=== PATIENT | female | born 1995 | race Caucasian/White ===

== ENCOUNTER 2021-10-20 23:49 | Emergency (ER) | payer OTHER ==
[~2021-10-20] VITALS: Ht 167.6 cm; Wt 83.5 kg
[2021-10-21] MEDS ORDERED: PRENATA CHEWAB1 EACH PO (00:22)
== END 2021-10-21 01:55 | disposition home or self-care (01) ==
LOC: ED 23:49
DX: O26.891 Other specified pregnancy related conditions, first trimester (principal); R10.31 Right lower quadrant pain; R10.32 Left lower quadrant pain; O99.511 Diseases of the respiratory system complicating pregnancy, first trimester; J45.909 Unspecified asthma, uncomplicated; Z88.0 Allergy status to penicillin; Z88.5 Allergy status to narcotic agent; Z79.899 Other long term (current) drug therapy; Z3A.01 Less than 8 weeks gestation of pregnancy
CPT/HCPCS: 36415; 76801; 76817; 80053; 81001; 84702; 85025; 86900; 86901; 99284-25

== ENCOUNTER 2021-12-20 12:44 | Emergency (ER) | payer OTHER ==
[~2021-12-20] VITALS: Ht 167.6 cm; Wt 83.5 kg
[~2021-12-20 12:44] MED LIST: PRENATA CHEWAB1 EACH PO
== END 2021-12-20 13:54 | disposition home or self-care (01) ==
LOC: ED 12:44
DX: O99.891 Other specified diseases and conditions complicating pregnancy (principal); R03.1 Nonspecific low blood-pressure reading; U07.1 COVID-19; Z88.0 Allergy status to penicillin; Z88.5 Allergy status to narcotic agent; Z3A.14 14 weeks gestation of pregnancy
CPT/HCPCS: 99284

== ENCOUNTER 2021-12-25 21:28 | Emergency (ER) | payer OTHER ==
[~2021-12-25] VITALS: Ht 167.6 cm; Wt 83.9 kg
--- OUTSIDE RECORDS SUMMARY | 2021-12-25 21:34 | XMS ---
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 Care Guidelines exist for the following facilities: [facility] [place] ( [place]12/2020 ) [place] VISIT COUNT (12 MO.) 3 [facility] TOTAL 3 NOTE: Visits indicate total known visits. ED/UCC VISIT TRACKING (12 MO.) 12/25/2021 21:28 [facility] [place] TYPE: Emergency COMPLAINT: - SKIN PROBLEM 12/20/2021 12:45 [facility] [place] TYPE: Emergency COMPLAINT: - LOW BLOOD PRESSURE DIAGNOSES: - COVID-19 - Allergy status to narcotic agent - Other specified diseases and conditions complicating - Nonspecific low blood-pressure reading - 14 weeks gestation of - Allergy status to penicillin 10/20/2021 23:51 [facility] TYPE: Emergency COMPLAINT: - ABD PAIN DIAGNOSES: - Right lower quadrant pain - Allergy status to narcotic agent - Unspecified asthma, uncomplicated - Less than 8 weeks gestation of - Allergy status to penicillin - Diseases of the respiratory system complicating , first trimester - Other specified diseases and conditions complicating - Other specified related conditions, first trimester - 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
[2021-12-25] MEDS ORDERED: PREDNISONE20 MG PO (21:51)
== END 2021-12-25 22:02 | disposition home or self-care (01) ==
LOC: ED 21:28
DX: L29.9 Pruritus, unspecified (principal); J45.909 Unspecified asthma, uncomplicated; Z88.0 Allergy status to penicillin; Z88.5 Allergy status to narcotic agent
CPT/HCPCS: 99283; J7512

== ENCOUNTER 2022-06-17 19:03 | Emergency (ER) | payer OTHER ==
[~2022-06-17] VITALS: Ht 167.6 cm; Wt 97.1 kg
[~2022-06-17 19:03] MED LIST changes: +PREDNISONE20 MG PO
[2022-06-17] MEDS ORDERED: TRANEXAMIC ACI650 MG PO (20:28)
[2022-06-17] MEDS ORDERED: ACETAMINOPHEN325 M1 PO (20:28)
[2022-06-17] MEDS ORDERED: IBUPROFEN600 MG PO (20:28)
[2022-06-17] MEDS ORDERED: DOCUSATE SODIU100 MG PO (20:28)
== END 2022-06-17 21:55 | disposition home or self-care (01) ==
LOC: ED 19:03
DX: O72.2 Delayed and secondary postpartum hemorrhage (principal); O99.53 Diseases of the respiratory system complicating the puerperium; J45.909 Unspecified asthma, uncomplicated; Z88.0 Allergy status to penicillin; Z88.5 Allergy status to narcotic agent; Z79.899 Other long term (current) drug therapy
CPT/HCPCS: 36415; 76830; 76856; 80053; 85025; 99284-25

== ENCOUNTER 2022-06-19 10:46 | Emergency (ER) | payer OTHER ==
[~2022-06-19] VITALS: Ht 167.6 cm; Wt 97.1 kg
[~2022-06-19 10:46] MED LIST changes: +ACETAMINOPHEN325 M1 PO; +DOCUSATE SODIU100 MG PO; +IBUPROFEN600 MG PO; +TRANEXAMIC ACI650 MG PO
--- OUTSIDE RECORDS SUMMARY | 2022-06-19 10:54 | XMS ---
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 Care Guidelines exist for the following facilities: [facility] [place] ( 08[place]12/2020 ) [place] VISIT COUNT (12 MO.) 5 [facility] TOTAL 5 NOTE: Visits indicate total known visits. 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 - Diseases of the respiratory system complicating the puerperium - Allergy status to narcotic agent - Delayed and secondary hemorrhage - Allergy status to penicillin - Unspecified asthma, uncomplicated 12/25/2021 21:28 [facility] TYPE: Emergency COMPLAINT: - SKIN PROBLEM DIAGNOSES: - Allergy status to narcotic agent - Rash and other nonspecific skin eruption - Pruritus, unspecified - Allergy status to penicillin - Unspecified asthma, uncomplicated 12/20/2021 12:45 [facility] [place] TYPE: Emergency COMPLAINT: - LOW BLOOD PRESSURE DIAGNOSES: - 14 weeks gestation of - Other specified diseases and conditions complicating - COVID-19 - Allergy status to penicillin - Nonspecific low blood-pressure reading - Allergy status to narcotic agent 10/20/2021 23:51 [facility] [place] TYPE: Emergency COMPLAINT: - ABD PAIN DIAGNOSES: - Allergy status to penicillin - Unspecified asthma, uncomplicated - Left lower quadrant pain - Right lower quadrant pain - Other specified related conditions, first trimester - Diseases of the respiratory system complicating , first trimester - Less than 8 weeks gestation of - Allergy status to narcotic agent - Other senior care (current) drug therapy - Other specified diseases and conditions complicating INPATIENT VISIT TRACKING (12 MO.) 06/12/2022 20:39 [facility] [place] TYPE: [facility] COMPLAINT: - Inpt Induction, Von Willebrand Dis. Type I, Hx 1 wk Delayed PPH w/ Transfusion, 38-6 wks DIAGNOSES: - Inpt Induction, Von Willebrand Dis. Type I, Hx 1 wk Delayed PPH w/ Transfusion, 38-6 wks [id number]
[2022-06-19] MEDS ORDERED: CEPHALEXIN500 M1 PO (16:39)
== END 2022-06-19 17:03 | disposition home or self-care (01) ==
LOC: ED 10:46
DX: R51.9 Headache, unspecified (principal); N39.0 Urinary tract infection, site not specified; J45.909 Unspecified asthma, uncomplicated; Z88.0 Allergy status to penicillin; Z88.5 Allergy status to narcotic agent; Z79.899 Other long term (current) drug therapy
CPT/HCPCS: 36415; 80053; 81001; 83605; 84157; 85025; 87088; 87502; 89051; 96374; 99284-25; A9270; C9803; J1885; J7030; U0003

== ENCOUNTER 2023-03-07 16:26 | Emergency (ER) | payer OTHER ==
[~2023-03-07] VITALS: Ht 167.6 cm; Wt 101.9 kg
--- OUTSIDE RECORDS SUMMARY | ~2023-03-07 | XMS | Continuity of Care Document ---
Demographics + + + | Address | [address] | | | [place] [address] | + + + | Preferred Language | Unknown | + + + | Marital Status | | + + + | Druze Affiliation | Unknown | + + + | Race | White | + + + | Ethnic Group | Not or | + + + Author + + + | Author | [facility] | + + + | Organization | [facility] | + + + | Address | [address] | | | [place] [address] | + + + | Phone | | + + + Care Team Providers + + + + | Care Panel Machine Tender Name | Role | Phone | + + + + Unavailable | Unavailable | + + + + Allergies No information. Encounters No information. Functional Status No information. Immunizations No information. Medications No information. Problems + + + + | date | description | facility | + + + + | 2023-01-28 07:00 | RIGHT UPPER QUADRANT PAIN | [facility] | + + + + | 2023-01-28 07:00 | UNSPECIFIED ABDOMINAL PAIN | [facility] | | | | | + + + + Procedures No information. Results/Labs No information. Social History +--------+ + + | date | description | facility | +--------+ + + Vital Signs No information."
[~2023-03-07 16:26] MED LIST changes: +CEPHALEXIN500 M1 PO
[2023-03-07 17:29] LABS: INFLUENZA B NAA NEGATIVE (NEGATIVE); RESPIRATORY SYNCYTIAL VIR NAA NEGATIVE (NEGATIVE)
[2023-03-07] MEDS ORDERED: ZITHROMAX250 MG PO (19:43)
[2023-03-07] MEDS ORDERED: MUCINEX600 MG PO (19:43)
[2023-03-07 20:22] VITALS: BP 120/69
== END 2023-03-07 20:23 | disposition home or self-care (01) ==
LOC: ED 16:26
PROVIDERS: Emergency Medicine
DX: J18.9 Pneumonia, unspecified organism (principal); J45.909 Unspecified asthma, uncomplicated; Z88.0 Allergy status to penicillin; Z88.5 Allergy status to narcotic agent; Z79.899 Other long term (current) drug therapy; Z20.822 Contact with and (suspected) exposure to COVID-19
CPT/HCPCS: 71045; 87502; 99285-25; C9803; U0002